=== PATIENT | male | born 1990 | race Caucasian/White ===

== ENCOUNTER 2021-06-07 21:02 | Emergency (ER) | payer OTHER ==
[~2021-06-07] VITALS: Ht 177.8 cm; Wt 72.7 kg
[2021-06-07 21:15] VITALS: BP 107/48
--- NOTE | 2021-06-07 21:21 | NUR ---
PT STATES HE WILL WAIT OUTSIDE.
[2021-06-07 21:56] LABS: BASOPHILS # (AUTO) 0.1 K/uL (0.00-0.22); BASOPHILS % (AUTO) 0.8 % (0.0-2.0); EOSINOPHILS # (AUTO) 0.8 K/uL (0-0.4); EOSINOPHILS % (AUTO) 7.5 % (0.0-4.0); HEMATOCRIT 42.5 % (36-52); HEMOGLOBIN 14.5 g/dL (12.0-18.0); LYMPHOCYTES # (AUTO) 3.5 K/uL (2.0-11.5); LYMPHOCYTES % (AUTO) 31.1 % (20.5-51.1); MEAN CORPUSCULAR HEMOGLOBIN 30 pg (27-31); MEAN CORPUSCULAR HGB CONC 34 g/dL (33-37); MEAN CORPUSCULAR VOLUME 89.2 fL (80-94); MONOCYTES # (AUTO) 1.2 K/uL (0.8-1.0); MONOCYTES % (AUTO) 10.9 % (1.7-9.3); NEUTROPHILS # (AUTO) 5.7 K/uL (1.8-7.7); NEUTROPHILS % (AUTO) 49.7 % (42.2-75.2); PLATELET COUNT (AUTO) 349 K/uL (140-450); RED BLOOD CELL COUNT(AUTO) 4.77 MIL/uL (4.20-6.10); RED CELL DISTRIBUTION WIDTH 13.3 % (11.6-13.7); WHITE BLOOD COUNT (AUTO) 11.4 K/uL (4.8-10.8)
[2021-06-07 22:59] LABS: ALBUMIN 3.7 g/dL (3.4-5.0); ANION GAP 12.8 (8-16); POTASSIUM 3.8 mmol/L (3.5-5.1); TOTAL BILIRUBIN 0.2 mg/dL (0.0-1.0)
[2021-06-07 23:52] VITALS: BP 107/48
--- NOTE | 2021-06-07 23:52 | NUR ---
Patient discharged with v/s stable. Written and verbal after care instructions given and explained BY DR. CARRILLO Patient verbalized understanding. Ambulatory with steady gait. All questions addressed prior to discharge. Advised to follow up with PMD.
== END 2021-06-07 23:52 | disposition home or self-care (01) ==
LOC: MED 21:02
DX: R07.89 Other chest pain (principal); R06.00 Dyspnea, unspecified
CPT/HCPCS: 36415; 71045; 80053; 84484; 85025; 93005; 99285

== ENCOUNTER 2021-11-30 09:01 | Emergency (ER) | payer OTHER ==
[~2021-11-30] VITALS: Ht 177.8 cm; Wt 72.6 kg
[2021-11-30 09:13] VITALS: BP 120/67
--- NOTE | 2021-11-30 09:16 | NUR ---
PT AMB TO BED 7.
--- NOTE | 2021-11-30 09:30 | NUR ---
Note undone in EDM - 11/30/21 at 1006 by PHSEP 31YO MALE PT C/O 7/10 L ELBOW PAIN XLASTNIGHT. PT STATES HE SLIPPED WHILE WALKING AND FELL ONTO ARM. DENIES INJURY TO HEAD OR LOC. PT PRESENTS WITH MILD REDDENED ELBOW. PT ABLE TO EXTEND AND LIFT ELBOW WITH VISIBLE DISCOMFORT. PT STATES HE "MIGHTVE POPPED ELBOW OUT OF PLACE AND THEN BACK IN. I FELT A GAP" . STATES PAIN AT MOST ON MOVEMENT. DENIES TAKING MEDICATION FOR PAIN. DENIES N/V/D OR CHEST PAIN. PT AAOX4, RESPIRATIONS EVEN AND UNLABORED. NO VISIBLE DISTRESS. HX: DENIES NKA
--- NOTE | 2021-11-30 09:30 | NUR ---
31YO MALE PT C/O 710 L ELBOW PAIN XLASTNIGHT. PT STATES HE SLIPPED WHILE WALKING AND FELL ONTO ARM. DENIES INJURY TO HEAD OR LOC. PT PRESENTS WITH MILD REDDENED ELBOW. PT ABLE TO EXTEND AND LIFT ELBOW WITH VISIBLE DISCOMFORT. PT STATES HE "MIGHTVE POPPED ELBOW OUT OF PLACE AND THEN BACK IN. I FELT A GAP" . STATES PAIN AT MOST ON MOVEMENT. DENIES NUMBING OR LOSS OF SENSATION OR TAKING MEDICATION FOR PAIN. DENIES N/V/D OR CHEST PAIN. PT AAOX4, RESPIRATIONS EVEN AND UNLABORED. NO VISIBLE DISTRESS. HX: DENIES NKA
--- NOTE | 2021-11-30 09:38 | NUR ---
PT TAKEN TO XRAY VIA WHEELCHAIR
--- NOTE | 2021-11-30 09:45 | NUR ---
pt returned from xray at this time via wheelchair
[2021-11-30] MEDS ORDERED: IBUPROFEN 600 MG TAB PO ONE (10:45)
[2021-11-30] MEDS ORDERED: NAPR-54 PO (10:50)
--- NOTE | 2021-11-30 11:01 | NUR ---
Patient discharged with v/s stable. Written and verbal after care instructions FOR ELBOW CONTUSION given and explained. Patient alert, oriented and verbalized understanding of instructions. Ambulatory with steady gait. All questions addressed prior to discharge. ID band removed. Patient advised to follow up with PMD. Rx of NAPROXEN given. Opportunity to ask questions provided and answered.
--- NOTE | 2021-11-30 11:05 | NUR ---
KATERINA WRAP APPLIED TO L ELBOW. + CMS AFTER APPLICATION
--- NOTE | 2021-11-30 11:06 | NUR ---
Chart checked and completed. The patient's care was reviewed and supervised by Jessica Murrell RN.
== END 2021-11-30 11:02 | disposition home or self-care (01) ==
LOC: MED 09:01
DX: S53.402A Unspecified sprain of left elbow, initial encounter (principal); W18.30XA Fall on same level, unspecified, initial encounter; Y93.89 Activity, other specified; Y92.89 Other specified places as the place of occurrence of the external cause; Y99.8 Other external cause status
CPT/HCPCS: 73080; 99283